=== PATIENT | female | born 1945 | race Caucasian/White ===

== ENCOUNTER 2017-06-25 19:41 | Emergency (ER) | payer OTHER ==
[2017-06-25 19:46] VITALS: BP 164/86; PULSE 89; RESP 18; TEMP 99.8; O2SAT 99
--- NOTE | 2017-06-25 20:29 | ED PDOC ---
HPI: Female Pain Time Seen by Provider: 06/25/17 20:01 Chief Complaint (Nursing): Female Genitourinary Chief Complaint (Provider): dysuria History Per: Patient History/Exam Limitations: no limitations Onset/Duration Of Symptoms: Days (x1) Current Symptoms Are (Timing): Still Present Additional Complaint(s): Candace Cross is a 71 year old female with previous medical history of hypertension and gastritis, who presents to the emergency department, accompanied by her daughter, with a complaint of suprapubic pain associated with painful, burning urination ongoing since 0300 today. Denied fever, chills, vomiting, nausea, diarrhea, lower back pain or prior episodes. PMD: Sawyer Unger MD Past Medical History Reviewed: Historical Data, Nursing Documentation, Vital Signs Vital Signs: Last Vital Signs Temp 99.8 F H 06/25/17 19:42 Pulse 89 06/25/17 19:42 Resp 18 06/25/17 19:42 BP 164/86 H 06/25/17 19:42 Pulse Ox 99 06/25/17 19:42 - Medical History PMH: Gastritis, HTN, Hyperlipidemia - Surgical History Surgical History: Cholecystectomy - Family History Family History: States: Unknown Family Hx - Social History Current smoker - smoking cessation education provided: No Alcohol: None Drugs: Denies - Home Medications Home Medications: Ambulatory Orders Medication Instructions Recorded traMADol [Ultram] 50 mg PO QID PRN #20 tab 09/14/14 Sulfamethoxazole/Trimethoprim 1 tab PO BID #14 tab 06/26/17 [Bactrim DS 800 mg-160 mg] - Allergies Allergies/Adverse Reactions: Allergies Allergy/AdvReac Type Severity Reaction Status Date / Time No Known Allergies Allergy Verified 09/14/14 09:17 Review of Systems ROS Statement: Except As Marked, All Systems Reviewed And Found Negative Constitutional: Negative for: Fever, Chills Gastrointestinal: Positive for: Abdominal Pain (suprapubic). Negative for: Nausea, Vomiting, Diarrhea Genitourinary Female: Positive for: Dysuria (burning) Musculoskeletal: Negative for: Back Pain (lower) Physical Exam - Reviewed Nursing Documentation Reviewed: Yes Vital Signs Reviewed: Yes - Physical Exam Appears: Positive for: Well, Non-toxic, No Acute Distress Head Exam: Positive for: ATRAUMATIC, NORMAL INSPECTION, NORMOCEPHALIC Skin: Positive for: Normal Color Eye Exam: Positive for: Normal appearance ENT: Positive for: Normal ENT Inspection Neck: Positive for: Normal Cardiovascular/Chest: Positive for: Chest Non Tender Respiratory: Positive for: Normal Breath Sounds, Accessory Muscle Use. Negative for: Decreased Breath Sounds, Respiratory Distress Gastrointestinal/Abdominal: Positive for: Soft, Tenderness (suprapubic). Negative for: Normal Exam Back: Positive for: Normal Inspection. Negative for: L CVA Tenderness, R CVA Tenderness Extremity: Positive for: Normal ROM. Negative for: Tenderness, Pedal Edema, Deformity Neurologic/Psych: Positive for: Alert, Oriented - Laboratory Results Result Diagrams: 06/25/17 20:49 06/25/17 20:49 - ECG O2 Sat by Pulse Oximetry: 99 (RA) Pulse Ox Interpretation: Normal Medical Decision Making Medical Decision Making: Initial Impression: UTI Initial Plan: * BMP * Urine dipstick * CBC * Blood culture * Urine C&S Scribe Attestation: Documented by Amberly Boucher, acting as a scribe for Lora Michael MD. Provider Scribe Attestation: All medical record entries made by the Scribe were at my direction and personally dictated by me. I have reviewed the chart and agree that the record accurately reflects my personal performance of the history, physical exam, medical decision making, and the department course for this patient. I have also personally directed, reviewed, and agree with the discharge instructions and disposition. Disposition - Clinical Impression Clinical Impression: Urinary tract infection - Patient ED Disposition Is Patient to be Admitted: No Doctor Will See Patient In The: Office Counseled Patient/Family Regarding: Studies Performed, Diagnosis, Need For Followup - Disposition Referrals: Sawyer Unger MD [Family Provider] - Disposition: Routine/Home Disposition Time: 00:43 Condition: GOOD Additional Instructions: Take your medications as instructed. Follow up with your PCP in 2 days. You will be called in 2 days. Prescriptions: Sulfamethoxazole/Trimethoprim [Bactrim DS 800 mg-160 mg] 1 tab PO BID #14 tab Instructions: Urinary Tract Infection in Women (DC) Forms: [employer] (Hebrew)
[2017-06-25 20:59] LABS: BASO # 0.1 K/uL (0.0-0.2); BASO % 0.6 % (0.0-2.0); EOS % 0.4 % (0.0-4.0); HEMATOCRIT 38.3 % (34.0-47.0); LYMPH # 2.6 K/uL (1.0-4.3); LYMPH % 21.8 % (20.0-40.0); MEAN CELL VOLUME 90.1 fl (81.0-99.0); MEAN CORPUSCULAR HEMOGLOBIN 29.5 pg (27.0-31.0); MEAN CORPUSCULAR HGB CONC 32.7 g/dL (33.0-37.0); MEAN PLATELET VOLUME 7.8 fl (7.2-11.7); MONO # 0.7 K/uL (0.0-0.8); NEUT # 8.5 K/uL (1.8-7.0); NEUT % 71.2 % (50.0-75.0); RED CELL DISTRIBUTION WIDTH 13.6 % (11.5-14.5)
[2017-06-25 21:09] LABS: BLOOD UREA NITROGEN 12 mg/dl (7-17); CALCIUM 9.6 mg/dL (8.4-10.2); CARBON DIOXIDE 27 mmol/L (22-30); CHLORIDE 101 mmol/L (98-107); GFR AFRICAN-AMERICAN > 60; GLUCOSE,RANDOM 96 mg/dL (65-105); POTASSIUM 3.6 MMOL/L (3.6-5.0); SODIUM 139 mmol/l (132-148)
[2017-06-25] MEDS ORDERED: cefTRIAXone IV 1 gm in Dextros 50 ML IVPB STA (21:23)
[2017-06-25] MEDS ORDERED: cefTRIAXone IV 1 gm in Dextros 50 ML IVPB ONE (21:53)
== END 2017-06-26 00:58 | disposition home or self-care (01) ==
LOC: H.ER 19:41
DX: N39.0 Urinary tract infection, site not specified (principal); E78.5 Hyperlipidemia, unspecified; I10 Essential (primary) hypertension
CPT/HCPCS: 80048; 85025; 87040; 87086; 87181; 96374; 99282; J0696

== ENCOUNTER 2019-01-17 07:54 | Emergency (ER) | payer OTHER ==
[2019-01-17 07:59] VITALS: BMI 34.2
[2019-01-17] MEDS ORDERED: Lidocaine 5% Patch TD STA (08:26)
[2019-01-17] MEDS ORDERED: Lidocaine 5% Patch TD ONE (08:34)
--- NOTE | 2019-01-17 08:41 | ED PDOC ---
Lower Extremity Pain/Injury Time Seen by Provider: 01/17/19 08:01 Chief Complaint (Nursing): Lower Extremity Problem/Injury Chief Complaint (Provider): Lower Extremity Problem/Injury History Per: Patient, Family (Daughter) History/Exam Limitations: no limitations Onset/Duration Of Symptoms: Days (x1) Additional Complaint(s): 73 years old female with history of hypertension and gastritis brought to ER by daughter for evaluation of right knee and leg pain onset yesterday. Daughter reports patient fell 3 years ago and has been having pain on and off. She states patient was seen by PMD who referred her to orthopedic. Daughter denies any other fall or injury, calf pain, chest pain or shortness of breath. PMD: Dr. Unger Past Medical History Reviewed: Historical Data, Nursing Documentation, Vital Signs Vital Signs: Last Vital Signs Temp 98.1 F 01/17/19 07:57 Pulse 72 01/17/19 07:57 Resp 18 01/17/19 07:57 BP 188/92 H 01/17/19 07:57 Pulse Ox 96 01/17/19 07:57 Primary Care Provider: FAMILY PROVIDER,NO - Medical History PMH: Gastritis, HTN, Hyperlipidemia - Surgical History Surgical History: Cholecystectomy - Family History Family History: States: Unknown Family Hx - Social History Current smoker - smoking cessation education provided: No Alcohol: None Drugs: Denies - Home Medications Home Medications: Ambulatory Orders Medication Instructions Recorded traMADol [Ultram] 50 mg PO QID PRN #20 tab 09/14/14 Sulfamethoxazole/Trimethoprim 1 tab PO BID #14 tab 06/26/17 [Bactrim DS 800 mg-160 mg] Famotidine [Pepcid] 20 mg PO DAILY PRN #6 tab 01/17/19 Ibuprofen [Motrin] 600 mg PO TID 7 Days tab 01/17/19 Lidocaine 5% [Lidoderm] 1 ea TD DAILY PRN #5 patch 01/17/19 - Allergies Allergies/Adverse Reactions: Allergies Allergy/AdvReac Type Severity Reaction Status Date / Time No Known Allergies Allergy Verified 09/14/14 09:17 Review of Systems ROS Statement: Except As Marked, All Systems Reviewed And Found Negative Cardiovascular: Negative for: Chest Pain Respiratory: Negative for: Shortness of Breath Musculoskeletal: Positive for: Leg Pain (Right knee). Negative for: Other (Calf pain) Physical Exam - Reviewed Nursing Documentation Reviewed: Yes Vital Signs Reviewed: Yes - Physical Exam Appears: Positive for: Well, No Acute Distress Head Exam: Positive for: ATRAUMATIC, NORMOCEPHALIC Neck: Positive for: Normal, Painless ROM, Supple Cardiovascular/Chest: Positive for: Regular Rate, Rhythm Respiratory: Positive for: Normal Breath Sounds Pulses-Dorsalis Pedis (R): 2+ Pulses-Post. Tibialis (R): 2+ Back: Positive for: Normal Inspection. Negative for: L CVA Tenderness, R CVA Tenderness Extremity: Positive for: Normal ROM (of right knee), Tenderness (to anterior me dial aspect of right knee). Negative for: Calf Tenderness (or swelling), Other (Induration, erythema or tenderness to lateral knee; no laxity) Neurological/Psych: Positive for: Awake, Alert, Oriented (x3) - ECG O2 Sat by Pulse Oximetry: 96 (RA) Pulse Ox Interpretation: Normal - Progress ED Course And Treament: 921: Chronic knee pain. No new issues. No calf pain. Advised to fu with pcp. AAOx3. Ambulated. Pain improved. Medical Decision Making Medical Decision Making: Time: 825 Initial plan: --Lidocaine 1 ea TD --Pepcid 20 mg PO --Toradol 15 mg IVP Scribe Attestation: Documented by Shaila Harry acting as a scribe for aMnish Vásquez MD. Provider Scribe Attestation: All medical record entries made by the Scribe were at my direction and personally dictated by me. I have reviewed the chart and agree that the record accurately reflects my personal performance of the history, physical exam, medical decision making, and the department course for this patient. I have also personally directed, reviewed, and agree with the discharge instructions and disposition. Disposition - Clinical Impression Clinical Impression: Knee pain, chronic - Patient ED Disposition Is Patient to be Admitted: No Counseled Patient/Family Regarding: Diagnosis, Need For Followup, Rx Given - Disposition Referrals: [facility] [Outside] - 01/19/19 Disposition: Routine/Home Disposition Time: 09:22 Condition: STABLE Additional Instructions: Return if not better in 3 days. Prescriptions: Famotidine [Pepcid] 20 mg PO DAILY PRN #6 tab PRN Reason: Pain Ibuprofen [Motrin] 600 mg PO TID 7 Days tab Lidocaine 5% [Lidoderm] 1 ea TD DAILY PRN #5 patch PRN Reason: Pain, Moderate (4-7) Instructions: Knee Pain Print Language: GREENLANDIC
[2019-01-17 09:42] VITALS: BP 152/74; PULSE 84; RESP 17; TEMP 98; O2SAT 100
== END 2019-01-17 09:31 | disposition home or self-care (01) ==
LOC: H.ER 07:54
DX: M25.561 Pain in right knee (principal); E78.5 Hyperlipidemia, unspecified; I10 Essential (primary) hypertension
CPT/HCPCS: 96374; 99283; J1885